=== PATIENT | male | born 1990 | race American Indian/Alaskan Native ===

== ENCOUNTER 2016-10-11 18:20 | Emergency (ER) | payer OTHER ==
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
[2016-10-12] MEDS ORDERED: MOTRIN PO ONE (01:30)
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
[2016-10-12 02:51] VITALS: BP 150/100
== END 2016-10-12 02:30 | disposition home or self-care (01) ==
LOC: ED 18:20
DX: M54.5 Low back pain (principal); Z87.891 Personal history of nicotine dependence; V49.9XXA Car occupant (driver) (passenger) injured in unspecified traffic accident, initial encounter; Y93.89 Activity, other specified; Y99.8 Other external cause status; Y92.415 Exit ramp or entrance ramp of street or highway as the place of occurrence of the external cause
CPT/HCPCS: 99283